=== PATIENT | female | born 2000 | race Two or more races ===

== ENCOUNTER 2023-02-19 14:54 | Emergency (ER) | payer OTHER | END 2023-02-19 15:32 | disposition left against medical advice (07) | LOC: ER 14:54 | DX: R52 Pain, unspecified (principal); Z53.21 Procedure and treatment not carried out due to patient leaving prior to being seen by health care provider; Y04.8XXA Assault by other bodily force, initial encounter; Y93.89 Activity, other specified; Y92.89 Other specified places as the place of occurrence of the external cause; Y99.8 Other external cause status ==